=== PATIENT | female | born 1950 | race Caucasian/White ===

== ENCOUNTER → 2016-06-21 | Outpatient (CLI) | payer OTHER, MEDICARE ==
--- NOTE | 2016-06-21 16:23 | DX ---
Cervical Spine, Two Views History: Radiculitis, M54.12 Comparison: None available. Findings: Alignment is straightened with mild physiologic spondylolisthesis at C4-C5, C5-C6 and C6-C7 . Mild disk space narrowing at C5-C6. There is no prevertebral soft tissue swelling. Mineralization i s normal. The cervicothoracic junction is normally aligned. There is degenerative facet disease on th e left at C4-C5 and C5-C6.. Impression: Mild degenerative changes described above. Cervical straightening raises the possibility of muscle spasm. If symptoms persist, despite a period of conservative therapy, then cervical MRI antonia ht be complementary.
== END ==
LOC: FIMAGING 15:00
PROVIDERS: ATTEND Physical Medicine & Rehabilitation
DX: M54.12 Radiculopathy, cervical region (principal); M43.12 Spondylolisthesis, cervical region; R10.9 Unspecified abdominal pain

== ENCOUNTER → 2017-01-30 | Outpatient (CLI) | payer OTHER, MEDICARE | LOC: FIMAGING 13:26 | PROVIDERS: ATTEND Orthopaedic Surgery Orthopaedic Surgery of the Spine | DX: M41.85 Other forms of scoliosis, thoracolumbar region (principal); M51.36 Other intervertebral disc degeneration, lumbar region ==

== ENCOUNTER → 2017-08-23 | Outpatient (CLI) | payer OTHER, MEDICARE | LOC: FIMAGING 16:12 → EDSTATUS 16:12 | PROVIDERS: ATTEND Family Medicine | DX: M50.30 Other cervical disc degeneration, unspecified cervical region (principal) ==

== ENCOUNTER → 2018-03-20 | Outpatient (CLI) | payer OTHER, MEDICARE | LOC: FCPNEURO → EDSTATUS 21:30 | PROVIDERS: ATTEND Psychiatry & Neurology Sleep Medicine | DX: G47.9 Sleep disorder, unspecified (principal); R06.83 Snoring ==

== ENCOUNTER → 2018-04-10 | Outpatient (CLI) | payer OTHER, MEDICARE | LOC: BHFA 14:00 | PROVIDERS: ATTEND Internal Medicine Cardiovascular Disease | DX: I48.91 Unspecified atrial fibrillation (principal); I70.0 Atherosclerosis of aorta ==

== ENCOUNTER → 2018-06-20 | Outpatient (CLI) | payer OTHER, MEDICARE | LOC: BHFA 13:15 | PROVIDERS: ATTEND Internal Medicine Interventional Cardiology | DX: I48.91 Unspecified atrial fibrillation (principal); R07.9 Chest pain, unspecified ==